=== PATIENT | male | born 1945 | race Caucasian/White ===

== ENCOUNTER 2019-03-25 12:32 | Inpatient (IN) | payer OTHER ==
[~2019-03-25] VITALS: Ht 182.9 cm; Wt 76.9 kg
[2019-03-25] VITALS (19 sets, daily range): BP systolic 107–159; BP diastolic 19–97
[2019-03-25 14:04] LABS: CHLORIDE 111 mEq/L (98-107)
[2019-03-25 14:08] LABS: BASOPHILS % 0.7 % (0.0-2.0); EOSINOPHILS % 1.4 % (0.0-5.0); HEMATOCRIT. 38.9 % (42.0-52.0); HEMOGLOBIN. 12.8 g/dL (14.0-18.0); LYMPHOCYTES % 18.3 % (20.0-50.0); MEAN CORPUSCULAR HEMOGLOBIN 27.8 pg (28.0-32.0); MEAN CORPUSCULAR VOLUME 84.7 fL (80.0-94.0); MEAN PLATELET VOLUME 7.7 fl (7.4-10.4); MONOCYTES % 7.7 % (2.0-8.0); NEUTROPHILS % 71.9 % (40.0-76.0); PLATELET 223 x1000/uL (130-400); RED CELL DISTRIBUTION WIDTH 16.9 % (11.6-14.6)
[2019-03-25 14:11] LABS: PROTHROMBIN TIME 10.8 sec (9.6-11.0)
[2019-03-25] MEDS ORDERED: LEVETIRACETAM 500MG PREMIX 100 ML IV ONE (15:00)
[2019-03-25] MEDS ORDERED: DEXAMETHASONE 4MG/ML 1ML VIAL IV ONE (15:00)
[2019-03-25] MEDS ORDERED: ACETAMINOPHEN 650MG SUPP PR PRN (18:00)
[2019-03-25] MEDS ORDERED: DIPHENHYDRAMINE 50MG/ML VIAL IV PRN (18:00)
[2019-03-25] MEDS ORDERED: LORAZEPAM 2MG/ML CPJ IV PRN (18:00)
[2019-03-25] MEDS ORDERED: ONDANSETRON HCL 4MG/2ML INJ IV PRN (18:00)
[2019-03-25] MEDS ORDERED: NICARDIPINE 100 MG in SODIUM CHLORIDE 0.9% 60 ML IV PRN (18:45)
[2019-03-25] MEDS: NICARDIPINE 100 MG in SODIUM CHLORIDE 0.9% 60 ML IV PRN (19:04)
[2019-03-25] MEDS ORDERED: MORPHINE SULFATE 2 MG/ML CPJ (NOT FOR IM USE) IV PRN (19:15)
[2019-03-25] MEDS ORDERED: POTASSIUM CHLORIDE INJ 10 MEQ in DEXT 5%/0.9% NACL 1,000 ML IV SCH (20:00)
[2019-03-25] MEDS: LEVETIRACETAM 500 MG in SODIUM CHLORIDE 0.9% 100 ML IV SCH (20:02)
[2019-03-25] MEDS: PANTOPRAZOLE SODIUM 40 MG/VIAL IV SCH (20:02)
[2019-03-25] MEDS: DEXT 5%/LACTATED RINGERS 1,000 ML IV SCH (20:03)
[2019-03-25] MEDS: DEXAMETHASONE 4MG/ML 1ML VIAL IV SCH (23:42)
[2019-03-26] VITALS (94 sets, daily range): BP systolic 98–191; BP diastolic 28–128
[2019-03-26] MEDS ORDERED: DEXAMETHASONE 10 MG/ML VIAL IV SCH
[2019-03-26 01:06] LABS: CLARITY URINE CLEAR (CLEAR); COLOR URINE YELLOW (YELLOW); KETONES URINE 1+ (NEGATIVE); LEUKOCYTE ESTERASE URINE NEGATIVE (NEGATIVE); NITRITE URINE NEGATIVE (NEGATIVE); OCCULT BLOOD URINE NEGATIVE (NEGATIVE); PROTEIN URINE NEGATIVE (NEGATIVE); SPECIFIC GRAVITY URINE 1.017 (1.005-1.030); UROBILINOGEN URINE 0.2 E.U./dL (0.2-1.0)
[2019-03-26 05:02] LABS: HEMATOCRIT. 40.6 % (42.0-52.0); HEMOGLOBIN. 13.2 g/dL (14.0-18.0); MEAN CORPUSCULAR HEMOGLOBIN 27.6 pg (28.0-32.0); MEAN CORPUSCULAR VOLUME 84.6 fL (80.0-94.0); PLATELET 238 x1000/uL (130-400); RED CELL DISTRIBUTION WIDTH 16.6 % (11.6-14.6)
[2019-03-26 05:08] LABS: INR 1.1
[2019-03-26] MEDS: DEXAMETHASONE 4MG/ML 1ML VIAL IV SCH ×4 (05:08→23:38)
[2019-03-26 05:13] LABS: CHLORIDE 113 mEq/L (98-107)
[2019-03-26] MEDS ORDERED: BACITRACIN 15GM TUBE TOP ONE (07:14)
[2019-03-26] MEDS ORDERED: THROMBIN (BOVINE) 5000 UNITS/VIAL TOP ONE (07:14)
[2019-03-26] MEDS ORDERED: BACITRACIN 50,000 UNITS/VIAL ONE (07:14)
[2019-03-26] MEDS ORDERED: LIDOCAINE HCL/EPINEPHRINE 1%-EPI 1:100,000 20 ML VIAL ONE (07:14)
[2019-03-26] MEDS ORDERED: NORMAL SALINE 0.9% 10 ML SYR ONE (07:15)
[2019-03-26 07:33] LABS: PLATELET ESTIMATE NORMAL
[2019-03-26] MEDS ORDERED: PROPOFOL 200MG/20ML VIAL IV ONE (08:30)
[2019-03-26] MEDS ORDERED: FENTANYL CITRATE/PF 50MCG/ML 2ML VIAL ONE (08:30)
[2019-03-26] MEDS: LEVETIRACETAM 500 MG in SODIUM CHLORIDE 0.9% 100 ML IV SCH ×2 (08:30→21:53)
[2019-03-26] MEDS ORDERED: ROCURONIUM BROMIDE 10MG/ML VIAL 5ML IV ONE (08:30)
[2019-03-26] MEDS: PANTOPRAZOLE SODIUM 40 MG/VIAL IV SCH (08:30)
[2019-03-26] MEDS ORDERED: GLYCOPYRROLATE 0.2 MG/ML 2ML VIAL ONE (08:30)
[2019-03-26] MEDS ORDERED: MIDAZOLAM HCL 2 MG/2 ML VIAL ONE (08:30)
[2019-03-26] MEDS ORDERED: NEOSTIGMINE METHYLSULFATE 1MG/ML 10 ML VIAL ONE (08:30)
[2019-03-26] MEDS ORDERED: DEXAMETHASONE 4MG/ML 1ML VIAL ONE (08:31)
[2019-03-26] MEDS ORDERED: ONDANSETRON HCL 4MG/2ML INJ ONE (09:31)
[2019-03-26] MEDS ORDERED: ONDANSETRON HCL 4MG/2ML INJ IV PRN (10:00)
[2019-03-26] MEDS ORDERED: MEPERIDINE HCL/PF 25MG/ML CPJ IV PRN (10:00)
[2019-03-26] MEDS ORDERED: HYDROMORPHONE HCL/PF 2MG/ML CPJ IV PRN (10:00)
[2019-03-26] MEDS ORDERED: LABETALOL 5MG/ML SYR 20 MG/4 ML SYRINGE IV PRN (10:00)
[2019-03-26] MEDS ORDERED: CEFAZOLIN SODIUM 1000MG/VIAL ONE (10:17)
[2019-03-26] MEDS ORDERED: SODIUM CHLORIDE 0.9% 10ML VIAL ONE (10:17)
[2019-03-26] MEDS ORDERED: LABETALOL HCL 5MG/ML VIAL 20ML IV ONE (11:11)
[2019-03-26] MEDS: MORPHINE SULFATE 4 MG/ML CPJ (NOT FOR IM USE) IV PRN ×3 (11:15→20:53)
[2019-03-26] MEDS: CEFAZOLIN 1000MG PREMIX 50 ML IV SCH ×2 (13:54→21:14)
[2019-03-26] MEDS: DEXT 5%/LACTATED RINGERS 1,000 ML IV SCH (13:55)
[2019-03-26] MEDS ORDERED: CEFAZOLIN SODIUM 1000MG/VIAL IV SCH (14:00)
[2019-03-27] VITALS (86 sets, daily range): BP systolic 101–165; BP diastolic 58–95
[2019-03-27] MEDS: MORPHINE SULFATE 4 MG/ML CPJ (NOT FOR IM USE) IV PRN ×5 (02:43→23:48)
[2019-03-27] MEDS: DEXAMETHASONE 4MG/ML 1ML VIAL IV SCH ×4 (05:07→23:47)
[2019-03-27] MEDS: CEFAZOLIN 1000MG PREMIX 50 ML IV SCH ×3 (05:07→21:51)
[2019-03-27] MEDS: PANTOPRAZOLE SODIUM 40 MG/VIAL IV SCH (08:32)
[2019-03-27] MEDS: LEVETIRACETAM 500 MG in SODIUM CHLORIDE 0.9% 100 ML IV SCH ×2 (08:32→20:59)
[2019-03-27] MEDS: DEXT 5%/LACTATED RINGERS 1,000 ML IV SCH (10:29)
[2019-03-28] VITALS (51 sets, daily range): BP systolic 86–169; BP diastolic 63–105
[2019-03-28] MEDS: MORPHINE SULFATE 4 MG/ML CPJ (NOT FOR IM USE) IV PRN ×4 (02:17→22:40)
[2019-03-28] MEDS: CEFAZOLIN 1000MG PREMIX 50 ML IV SCH ×2 (05:33→13:34)
[2019-03-28] MEDS: DEXAMETHASONE 4MG/ML 1ML VIAL IV SCH ×3 (05:34→20:39)
[2019-03-28] MEDS: DEXT 5%/LACTATED RINGERS 1,000 ML IV SCH (07:28)
[2019-03-28] MEDS: LEVETIRACETAM 500 MG in SODIUM CHLORIDE 0.9% 100 ML IV SCH (08:11)
[2019-03-28] MEDS: PANTOPRAZOLE SODIUM 40 MG/VIAL IV SCH (08:11)
[2019-03-28] MEDS ORDERED: DOCUSATE SODIUM 250MG CAPSULE PO PRN (11:00)
[2019-03-28] MEDS ORDERED: IPRATROPIUM/ALBUTEROL 0.5-3(2.5)MG/3ML NEB HHN PRN (11:00)
[2019-03-28] MEDS ORDERED: BISACODYL 5MG TABLET PO PRN (11:00)
[2019-03-28] MEDS: AMLODIPINE 5MG TABLET PO SCH (15:09)
[2019-03-28] MEDS: LEVETIRACETAM 500MG TABLET PO SCH (20:39)
[2019-03-29] VITALS (48 sets, daily range): BP systolic 117–178; BP diastolic 63–103
[2019-03-29] MEDS: DEXT 5%/LACTATED RINGERS 1,000 ML IV SCH (03:39)
[2019-03-29] MEDS: DEXAMETHASONE 4MG/ML 1ML VIAL IV SCH ×2 (03:39→12:56)
[2019-03-29] MEDS: MORPHINE SULFATE 4 MG/ML CPJ (NOT FOR IM USE) IV PRN (06:13)
[2019-03-29] MEDS: LEVETIRACETAM 500MG TABLET PO SCH ×2 (08:22→22:03)
[2019-03-29] MEDS: PANTOPRAZOLE SODIUM 40 MG/VIAL IV SCH (08:22)
[2019-03-29] MEDS: AMLODIPINE 5MG TABLET PO SCH ×2 (08:23→16:30)
[2019-03-29] MEDS: NICARDIPINE 100 MG in SODIUM CHLORIDE 0.9% 60 ML IV PRN (08:30)
[2019-03-29] MEDS ORDERED: HYDRALAZINE HCL 10MG TABLET PO SCH (10:45)
[2019-03-29] MEDS ORDERED: HYDRALAZINE 20MG/ML VIAL IV PRN (11:00)
[2019-03-30] VITALS: BP 132/82
[2019-03-30 04:00] VITALS: BP 148/87
[2019-03-30 08:00] VITALS: BP 163/95
[2019-03-30] MEDS: LEVETIRACETAM 500MG TABLET PO SCH ×2 (09:05→21:35)
[2019-03-30] MEDS: AMLODIPINE 5MG TABLET PO SCH ×2 (09:07→17:54)
[2019-03-30 12:00] VITALS: BP 131/81
[2019-03-30 16:00] VITALS: BP 126/84
[2019-03-30 20:00] VITALS: BP 115/76
[2019-03-31] VITALS: BP 120/76
[2019-03-31 04:00] VITALS: BP 135/87
[2019-03-31 08:00] VITALS: BP 154/85
[2019-03-31] MEDS: LEVETIRACETAM 500MG TABLET PO SCH (08:58)
[2019-03-31] MEDS: AMLODIPINE 5MG TABLET PO SCH (08:58)
[2019-03-31] MEDS ORDERED: MORPHINE SULFATE 2 MG/ML CPJ (NOT FOR IM USE) IV NR (10:45)
[2019-03-31 12:00] VITALS: BP 109/71
[2019-03-31 14:11] VITALS: BP 109/71
== END 2019-03-31 15:36 | disposition home or self-care (01) | DRG 26 ==
LOC: ER 12:32 → MICUSO 15:51 → EDBEDREQ 15:56 → EDBEDREQTM 15:56 → EDBEDREQSVC 15:57 → ENRESERV 17:52 → 6EST 03-29 17:04
PROVIDERS: ADMIT Internal Medicine; ATTEND Internal Medicine
PROC: 00C40ZZ Extirpation of Matter from Intracranial Subdural Space, Open Approach (ICD-10-PCS; principal; 2019-03-26)
PROC: 00H032Z Insertion of Monitoring Device into Brain, Percutaneous Approach (ICD-10-PCS; 2019-03-26)
PROC: 00U207Z Supplement Dura Mater with Autologous Tissue Substitute, Open Approach (ICD-10-PCS; 2019-03-26)
PROC: 4A103BD Monitoring of Intracranial Pressure, Percutaneous Approach (ICD-10-PCS; 2019-03-26)
DX: I62.02 Nontraumatic subacute subdural hemorrhage (principal); G81.91 Hemiplegia, unspecified affecting right dominant side; G93.40 Encephalopathy, unspecified; K59.00 Constipation, unspecified; G93.89 Other specified disorders of brain; D64.9 Anemia, unspecified; I10 Essential (primary) hypertension; Z98.49 Cataract extraction status, unspecified eye; Z79.899 Other long term (current) drug therapy
CPT/HCPCS: 36415; 71045; 80048; 81003; 84484; 86850; 86900; 88305; 93005; 93970; 94002; 96374; 97162; 97165; 99285; C1713; C9113; J0690; J1100; J1953; J2250; J2270; J2405; J2704; J2710; J3010; J3480; J3490; J7042; J7050; J7121

== ENCOUNTER 2019-05-09 11:32 | Inpatient (IN) | payer OTHER, MEDICARE ==
[2019-05-09] VITALS (27 sets, daily range): BP systolic 112–149; BP diastolic 66–88
[~2019-05-09] VITALS: Ht 182.9 cm; Wt 78.0 kg
[2019-05-09 13:07] LABS: BASOPHILS % 0.5 % (0.0-2.0); EOSINOPHILS % 0.3 % (0.0-5.0); HEMATOCRIT. 41.6 % (42.0-52.0); HEMOGLOBIN. 13.8 g/dL (14.0-18.0); LYMPHOCYTES % 12.7 % (20.0-50.0); MEAN CORPUSCULAR HEMOGLOBIN 28.4 pg (28.0-32.0); MEAN CORPUSCULAR VOLUME 85.5 fL (80.0-94.0); MEAN PLATELET VOLUME 7.9 fl (7.4-10.4); MONOCYTES % 7.1 % (2.0-8.0); NEUTROPHILS % 79.4 % (40.0-76.0); PLATELET 241 x1000/uL (130-400); RED BLOOD CELL COUNT 4.86 mill/uL (4.7-6.1); RED CELL DISTRIBUTION WIDTH 14.9 % (11.6-14.6)
[2019-05-09 13:14] LABS: PROTHROMBIN TIME 10.7 sec (9.6-11.0)
[2019-05-09 13:15] LABS: CHLORIDE 111 mEq/L (98-107)
[2019-05-09] MEDS ORDERED: MANNITOL 20% (20GM/100ML) BAG 500ML PREMIX IV ONE (13:45)
[2019-05-09] MEDS ORDERED: DEXAMETHASONE 10 MG/ML VIAL IV ONE (13:45)
[2019-05-09] MEDS ORDERED: MANNITOL 20% 250 ML IV ONE (14:00)
[2019-05-09] MEDS ORDERED: LEVETIRACETAM 1000MG/100ML 100 ML IV ONE (14:00)
[2019-05-09] MEDS ORDERED: NICARDIPINE 40MG/200ML PREMIX 200 ML IV PRN (14:30)
[2019-05-09 15:23] LABS: CLARITY URINE CLEAR (CLEAR); COLOR URINE YELLOW (YELLOW); KETONES URINE TRACE (NEGATIVE); LEUKOCYTE ESTERASE URINE NEGATIVE (NEGATIVE); NITRITE URINE NEGATIVE (NEGATIVE); OCCULT BLOOD URINE 1+ (NEGATIVE); PH URINE 5.5 (4.5-8.0); PROTEIN URINE NEGATIVE (NEGATIVE); SPECIFIC GRAVITY URINE 1.009 (1.005-1.030); UROBILINOGEN URINE 0.2 E.U./dL (0.2-1.0)
[2019-05-09] MEDS ORDERED: ONDANSETRON HCL 4MG/2ML INJ IV PRN (16:15)
[2019-05-09] MEDS: DEXT 5%/LACTATED RINGERS 1,000 ML IV SCH (17:09)
[2019-05-09] MEDS: DEXAMETHASONE 4MG/ML 1ML VIAL IV SCH (17:19)
[2019-05-09] MEDS: NICARDIPINE 100 MG in SODIUM CHLORIDE 0.9% 60 ML IV PRN (17:21)
[2019-05-09 17:27] LABS: PROTHROMBIN TIME 10.8 sec (9.6-11.0)
[2019-05-09] MEDS ORDERED: MORPHINE SULFATE 2 MG/ML CPJ (NOT FOR IM USE) IV PRN (19:00)
[2019-05-09] MEDS ORDERED: DEXAMETHASONE 10 MG/ML VIAL IV SCH (20:00)
[2019-05-09] MEDS ORDERED: LEVETIRACETAM 500 MG in SODIUM CHLORIDE 0.9% 100 ML IV SCH (21:00)
[2019-05-09] MEDS: FAMOTIDINE 20MG/2ML VIAL IV SCH (21:27)
[2019-05-09] MEDS: LEVETIRACETAM 500 MG in SODIUM CHLORIDE 0.9% 100 ML IV SCH (21:27)
[2019-05-10] VITALS (43 sets, daily range): BP systolic 10–137; BP diastolic 52–97
[2019-05-10] MEDS: DEXAMETHASONE 4MG/ML 1ML VIAL IV SCH ×4 (00:47→17:31)
[2019-05-10] MEDS ORDERED: THROMBIN (BOVINE) 5000 UNITS/VIAL TOP ONE ×2 (08:06→12:03)
[2019-05-10] MEDS ORDERED: LACTATED RINGERS 4,000 ML IV ONE (08:06)
[2019-05-10] MEDS ORDERED: NORMAL SALINE 0.9% 10 ML SYR ONE (08:06)
[2019-05-10] MEDS ORDERED: BACITRACIN 15GM TUBE TOP ONE (08:06)
[2019-05-10] MEDS ORDERED: BACITRACIN 50,000 UNITS/VIAL ONE ×2 (08:06→12:04)
[2019-05-10] MEDS: FAMOTIDINE 20MG/2ML VIAL IV SCH ×2 (08:30→20:35)
[2019-05-10] MEDS: LEVETIRACETAM 500 MG in SODIUM CHLORIDE 0.9% 100 ML IV SCH ×2 (08:30→20:35)
[2019-05-10 09:08] LABS: CHLORIDE 112 mEq/L (98-107)
[2019-05-10 09:12] LABS: PROTHROMBIN TIME 10.7 sec (9.6-11.0)
[2019-05-10 09:23] LABS: HEMATOCRIT. 40.2 % (42.0-52.0); HEMOGLOBIN. 13.3 g/dL (14.0-18.0); MEAN CORPUSCULAR HEMOGLOBIN 28.3 pg (28.0-32.0); MEAN CORPUSCULAR VOLUME 85.4 fL (80.0-94.0); PLATELET 262 x1000/uL (130-400); RED BLOOD CELL COUNT 4.71 mill/uL (4.7-6.1); RED CELL DISTRIBUTION WIDTH 14.8 % (11.6-14.6)
[2019-05-10] MEDS ORDERED: IPRATROPIUM/ALBUTEROL 0.5-3(2.5)MG/3ML NEB HHN PRN (09:45)
[2019-05-10] MEDS ORDERED: BENZONATATE 100MG CAPSULE PO PRN (09:45)
[2019-05-10] MEDS ORDERED: LIDOCAINE HCL/EPINEPHRINE 1%-EPI 1:100,000 20 ML VIAL ONE ×2 (11:12→12:04)
[2019-05-10] MEDS: DEXT 5%/LACTATED RINGERS 1,000 ML IV SCH (12:10)
[2019-05-10 12:18] LABS: PLATELET ESTIMATE NORMAL
[2019-05-10] MEDS ORDERED: PROPOFOL 200MG/20ML VIAL IV ONE ×2 (12:41→12:58)
[2019-05-10] MEDS ORDERED: CEFAZOLIN SODIUM 1000MG/VIAL ONE (12:41)
[2019-05-10] MEDS ORDERED: LIDOCAINE HCL/PF 1% 10 MG/ML 5ML VIAL ONE (12:41)
[2019-05-10] MEDS ORDERED: GLYCOPYRROLATE 0.2 MG/ML 2ML VIAL ONE (12:41)
[2019-05-10] MEDS ORDERED: MIDAZOLAM HCL 2 MG/2 ML VIAL ONE (12:41)
[2019-05-10] MEDS ORDERED: NEOSTIGMINE METHYLSULFATE 1MG/ML 10 ML VIAL ONE (12:41)
[2019-05-10] MEDS ORDERED: FENTANYL CITRATE/PF 50MCG/ML 2ML VIAL ONE ×2 (12:41→12:53)
[2019-05-10] MEDS ORDERED: ROCURONIUM BROMIDE 10MG/ML VIAL 5ML IV ONE ×2 (12:41→13:00)
[2019-05-10] MEDS ORDERED: DEXAMETHASONE 4MG/ML 1ML VIAL ONE (12:42)
[2019-05-10] MEDS ORDERED: PHENYLEPHRINE HCL 10 MG/ML 1ML (IV VIAL) IV ONE (12:42)
[2019-05-10] MEDS ORDERED: METOCLOPRAMIDE HCL 10MG/2ML VIAL ONE (12:42)
[2019-05-10] MEDS ORDERED: SODIUM CHLORIDE 0.9% 10ML VIAL ONE (12:42)
[2019-05-10] MEDS ORDERED: ONDANSETRON HCL 4MG/2ML INJ ONE (12:42)
[2019-05-10] MEDS ORDERED: EPHEDRINE SULFATE 50MG/ML VIAL ONE (12:42)
[2019-05-10] MEDS ORDERED: SUCCINYLCHOLINE CHLORIDE 200MG/10ML IV ONE (12:42)
[2019-05-10] MEDS ORDERED: CEFAZOLIN SODIUM 1000MG/VIAL IV SCH (14:00)
[2019-05-10] MEDS: MORPHINE SULFATE 4 MG/ML CPJ (NOT FOR IM USE) IV PRN ×2 (18:18→21:00)
[2019-05-10] MEDS: CEFAZOLIN 1000MG PREMIX 50 ML IV SCH (20:35)
[2019-05-11] VITALS (49 sets, daily range): BP systolic 99–146; BP diastolic 57–82
[2019-05-11] MEDS: DEXAMETHASONE 4MG/ML 1ML VIAL IV SCH ×4 (00:16→17:12)
[2019-05-11] MEDS: MORPHINE SULFATE 4 MG/ML CPJ (NOT FOR IM USE) IV PRN ×4 (00:17→21:38)
[2019-05-11] MEDS: DEXT 5%/LACTATED RINGERS 1,000 ML IV SCH ×2 (02:48→16:08)
[2019-05-11] MEDS: CEFAZOLIN 1000MG PREMIX 50 ML IV SCH ×3 (03:57→21:04)
[2019-05-11 05:21] LABS: HEMATOCRIT 35.8 % (42.0-52.0); HEMOGLOBIN 11.9 g/dL (14.0-18.0); MEAN CORPUSCULAR HEMOGLOBIN 28.3 pg (28.0-32.0); MEAN CORPUSCULAR VOLUME 85.7 fL (80.0-94.0); PLATELET 218 x1000/uL (130-400); RED BLOOD CELL COUNT 4.18 mill/uL (4.7-6.1); RED CELL DISTRIBUTION WIDTH 14.8 % (11.6-14.6)
[2019-05-11 05:31] LABS: CHLORIDE 113 mEq/L (98-107)
[2019-05-11] MEDS: LEVETIRACETAM 500 MG in SODIUM CHLORIDE 0.9% 100 ML IV SCH ×2 (09:28→21:04)
[2019-05-11] MEDS: FAMOTIDINE 20MG/2ML VIAL IV SCH ×2 (09:28→21:04)
[2019-05-11] MEDS: CARBAMIDE PEROXIDE 6.5% OTIC SOLN 15ML LEFT EAR SCH (17:11)
[2019-05-12] VITALS (63 sets, daily range): BP systolic 63–174; BP diastolic 45–99
[2019-05-12] MEDS: DEXAMETHASONE 4MG/ML 1ML VIAL IV SCH ×3 (00:06→11:57)
[2019-05-12] MEDS: CEFAZOLIN 1000MG PREMIX 50 ML IV SCH ×2 (04:26→12:00)
[2019-05-12] MEDS: DEXT 5%/LACTATED RINGERS 1,000 ML IV SCH ×2 (05:31→12:00)
[2019-05-12] MEDS: LEVETIRACETAM 500 MG in SODIUM CHLORIDE 0.9% 100 ML IV SCH ×2 (08:24→20:26)
[2019-05-12] MEDS: FAMOTIDINE 20MG/2ML VIAL IV SCH ×2 (09:19→20:26)
[2019-05-12] MEDS: CARBAMIDE PEROXIDE 6.5% OTIC SOLN 15ML LEFT EAR SCH ×2 (09:19→16:52)
[2019-05-12] MEDS: NICARDIPINE 100 MG in SODIUM CHLORIDE 0.9% 60 ML IV PRN (18:56)
[2019-05-12] MEDS: MORPHINE SULFATE 4 MG/ML CPJ (NOT FOR IM USE) IV PRN (22:56)
[2019-05-13] VITALS (99 sets, daily range): BP systolic 96–160; BP diastolic 34–123
[2019-05-13] MEDS: MORPHINE SULFATE 4 MG/ML CPJ (NOT FOR IM USE) IV PRN ×4 (01:28→15:59)
[2019-05-13] MEDS: FAMOTIDINE 20MG/2ML VIAL IV SCH ×2 (08:44→21:24)
[2019-05-13] MEDS: LEVETIRACETAM 500 MG in SODIUM CHLORIDE 0.9% 100 ML IV SCH ×2 (08:45→21:24)
[2019-05-13] MEDS: CARBAMIDE PEROXIDE 6.5% OTIC SOLN 15ML LEFT EAR SCH ×3 (08:45→17:00)
[2019-05-13] MEDS ORDERED: AMLODIPINE 5MG TABLET PO SCH (11:00)
[2019-05-13] MEDS ORDERED: AMIODARONE HCL 150 MG in DEXT 5% WATER 100 ML IV NR (13:15)
[2019-05-13] MEDS ORDERED: AMIODARONE HCL 900 MG in DEXT 5% WATER 482 ML IV SCH (13:15)
[2019-05-13] MEDS ORDERED: LIDOCAINE HCL 1% 20ML VIAL (Pyxis) INJ ONE (13:32)
[2019-05-13] MEDS ORDERED: AMIODARONE HCL 150 MG in DEXT 5% WATER 100 ML IV PRN (16:15)
[2019-05-13] MEDS: DOCUSATE SODIUM 100MG CAPSULE PO SCH (16:37)
[2019-05-14] VITALS (60 sets, daily range): BP systolic 91–172; BP diastolic 45–95
[2019-05-14 05:07] LABS: BASOPHILS % 0.1 % (0.0-2.0); EOSINOPHILS % 1.3 % (0.0-5.0); HEMATOCRIT. 41.3 % (42.0-52.0); LYMPHOCYTES % 18.3 % (20.0-50.0); MEAN CORPUSCULAR HEMOGLOBIN 28.7 pg (28.0-32.0); MEAN CORPUSCULAR VOLUME 84.6 fL (80.0-94.0); MEAN PLATELET VOLUME 8.4 fl (7.4-10.4); MONOCYTES % 10.2 % (2.0-8.0); NEUTROPHILS % 70.1 % (40.0-76.0); PLATELET 218 x1000/uL (130-400); RED BLOOD CELL COUNT 4.87 mill/uL (4.7-6.1); RED CELL DISTRIBUTION WIDTH 14.3 % (11.6-14.6)
[2019-05-14 05:11] LABS: CHLORIDE 110 mEq/L (98-107)
[2019-05-14] MEDS: LEVETIRACETAM 500 MG in SODIUM CHLORIDE 0.9% 100 ML IV SCH ×2 (09:07→21:47)
[2019-05-14] MEDS: FAMOTIDINE 20MG/2ML VIAL IV SCH ×2 (09:08→21:33)
[2019-05-14] MEDS: DOCUSATE SODIUM 100MG CAPSULE PO SCH ×2 (09:08→16:41)
[2019-05-14] MEDS: CARBAMIDE PEROXIDE 6.5% OTIC SOLN 15ML LEFT EAR SCH (09:08)
[2019-05-14] MEDS ORDERED: LACTULOSE 20G/30ML UDC PO PRN (11:15)
[2019-05-14] MEDS: AMIODARONE HCL 200 MG TABLET PO SCH ×2 (11:22→21:33)
[2019-05-14] MEDS ORDERED: POTASSIUM CHLORIDE 20MEQ TABLET SR PO SCH (12:00)
[2019-05-14] MEDS ORDERED: ASPI-964 PO (17:15)
[2019-05-14] MEDS ORDERED: INFLUENZA VIRUS VACCINE(AFLURIA) 0.5ML SYR IM ONE (18:00)
[2019-05-15] VITALS: BP 122/75
[2019-05-15] MEDS: MORPHINE SULFATE 4 MG/ML CPJ (NOT FOR IM USE) IV PRN (01:07)
[2019-05-15 04:00] VITALS: BP 106/67
[2019-05-15 07:36] LABS: BASOPHILS % 0.2 % (0.0-2.0); HEMATOCRIT. 39.4 % (42.0-52.0); LYMPHOCYTES % 19.2 % (20.0-50.0); MEAN PLATELET VOLUME 8.5 fl (7.4-10.4); NEUTROPHILS % 67.6 % (40.0-76.0); PLATELET 202 x1000/uL (130-400); RED BLOOD CELL COUNT 4.64 mill/uL (4.7-6.1); RED CELL DISTRIBUTION WIDTH 14.7 % (11.6-14.6)
[2019-05-15 08:00] VITALS: BP 118/79
[2019-05-15 08:44] LABS: CHLORIDE 110 mEq/L (98-107)
[2019-05-15] MEDS: LEVETIRACETAM 500 MG in SODIUM CHLORIDE 0.9% 100 ML IV SCH ×2 (10:11→22:08)
[2019-05-15] MEDS: AMIODARONE HCL 200 MG TABLET PO SCH ×2 (10:11→22:08)
[2019-05-15] MEDS: DOCUSATE SODIUM 100MG CAPSULE PO SCH ×2 (10:11→17:45)
[2019-05-15] MEDS: FAMOTIDINE 20MG/2ML VIAL IV SCH ×2 (10:11→22:08)
[2019-05-15 12:00] VITALS: BP 120/84
[2019-05-15 16:00] VITALS: BP 111/79
[2019-05-15] MEDS ORDERED: MAGNESIUM 1 G PREMIX 100 ML IV SCH (19:30)
[2019-05-15 20:00] VITALS: BP 114/72
[2019-05-16] VITALS: BP 127/65
[2019-05-16 04:00] VITALS: BP 131/81
[2019-05-16] MEDS ORDERED: HYDROCODONE/ACETAMINOPHEN 10/325MG TABLET PO PRN (05:45)
[2019-05-16] MEDS ORDERED: ACETAMINOPHEN 325MG TABLET PO PRN ×2 (05:45)
[2019-05-16 08:00] VITALS: BP 124/75
[2019-05-16] MEDS: DOCUSATE SODIUM 100MG CAPSULE PO SCH (09:19)
[2019-05-16] MEDS: LEVETIRACETAM 500 MG in SODIUM CHLORIDE 0.9% 100 ML IV SCH (09:20)
[2019-05-16] MEDS: AMIODARONE HCL 200 MG TABLET PO SCH (09:20)
[2019-05-16] MEDS: FAMOTIDINE 20MG/2ML VIAL IV SCH (09:20)
[2019-05-16 10:16] VITALS: BP 124/75
== END 2019-05-16 10:58 | disposition home or self-care (01) | DRG 26 ==
LOC: ER 11:56 → MICUNO 13:44 → EDBEDREQSVC 13:51 → EDBEDREQ 13:51 → ENRESERV 15:07 → 7WST 05-14 18:17
PROVIDERS: ADMIT Internal Medicine; ATTEND Internal Medicine
PROC: 30233R1 Transfusion of Nonautologous Platelets into Peripheral Vein, Percutaneous Approach (ICD-10-PCS; 2019-05-09)
PROC: 00C40ZZ Extirpation of Matter from Intracranial Subdural Space, Open Approach (ICD-10-PCS; principal; 2019-05-11)
PROC: 00H032Z Insertion of Monitoring Device into Brain, Percutaneous Approach (ICD-10-PCS; 2019-05-11)
PROC: 00U207Z Supplement Dura Mater with Autologous Tissue Substitute, Open Approach (ICD-10-PCS; 2019-05-11)
PROC: 4A103BD Monitoring of Intracranial Pressure, Percutaneous Approach (ICD-10-PCS; 2019-05-11)
PROC: 05HY33Z Insertion of Infusion Device into Upper Vein, Percutaneous Approach (ICD-10-PCS; 2019-05-14)
PROC: B54MZZA Ultrasonography of Right Upper Extremity Veins, Guidance (ICD-10-PCS; 2019-05-14)
DX: I62.01 Nontraumatic acute subdural hemorrhage (principal); G93.49 Other encephalopathy; I48.92 Unspecified atrial flutter; I82.619 Acute embolism and thrombosis of superficial veins of unspecified upper extremity; R26.2 Difficulty in walking, not elsewhere classified; R33.9 Retention of urine, unspecified; R00.0 Tachycardia, unspecified; I11.9 Hypertensive heart disease without heart failure; I48.91 Unspecified atrial fibrillation; Z79.82 Long term (current) use of aspirin; Z82.49 Family history of ischemic heart disease and other diseases of the circulatory system; Z98.49 Cataract extraction status, unspecified eye
CPT/HCPCS: 36415; 71045; 76937; 80048; 81003; 82962; 83735; 84443; 85027; 85651; 86850; 86900; 87070; 87075; 88300; 88304; 90686; 93005; 93306; 93970; 93971; 96374; 97116; 97163; 97166; 97530; 99285; C1713; C1725; J0282; J0330; J0690; J1100; J1953; J2250; J2270; J2370; J2405; J2704; J2710; J2765; J3010; J3475; J3490; J7050; J7060; J7120; J7121; J7620; P9034